=== PATIENT | male | born 1955 | race Native Hawaiian/Other Pacific Islander ===

== ENCOUNTER 2017-04-20 15:59 | Outpatient (CLI) | payer BC | END 2017-04-20 19:59 | disposition home or self-care (01) | LOC: RAD 15:59 | DX: M25.461 Effusion, right knee (principal) ==

== ENCOUNTER 2022-08-31 11:50 | Outpatient (CLI) | payer OTHER ==
[2022-08-31 12:22] LABS: POTASSIUM 4.5 mmol/L (3.6-5.2)
== END 2022-08-31 21:14 ==
LOC: LAB 11:50
PROVIDERS: ATTEND Family Medicine
DX: N28.89 Other specified disorders of kidney and ureter (principal)
CPT/HCPCS: 80053